=== PATIENT | female | born 1980 | race Caucasian/White ===

== ENCOUNTER 2017-07-15 00:19 | Inpatient (IN) | payer OTHER ==
[2017-07-15] MEDS ORDERED: Misoprostol 200 MCG Tab PO PRN (00:32)
[2017-07-15] MEDS ORDERED: Carboprost Tromethamine 250 MCG/1 ML Amp IM PRN (00:32)
[2017-07-15] MEDS ORDERED: Sodium Chloride 0.9% 10 ML Syringe FLUSH PRN (00:32)
[2017-07-15] MEDS ORDERED: Tranexamic Acid 1,000 MG in Sodium Chloride 0.9% 100 ML IV PRN (00:32)
[2017-07-15] MEDS ORDERED: Lidocaine 1% 50 ML MDV INJECT PRN (00:32)
[2017-07-15] MEDS ORDERED: Sodium Chloride 0.9% 2.5 ML Syringe FLUSH PRN (00:32)
[2017-07-15] MEDS ORDERED: Methylergonovine 0.2 MG/1 ML Amp IM PRN (00:32)
[2017-07-15] MEDS ORDERED: Water For Irrigation,Sterile 1,000 ML Container IRR PRN (00:32)
[2017-07-15] MEDS ORDERED: Terbutaline 1 MG/ML SDV SUBCUT PRN (00:34)
[2017-07-15] MEDS ORDERED: Misoprostol 25 MCG (1/4 of 100 MCG) Tab VAG PRN (00:34)
[2017-07-15] MEDS ORDERED: Misoprostol 25 MCG (1/4 of 100 MCG) Tab PO ONE (00:35)
[2017-07-15] MEDS ORDERED: Misoprostol 25 MCG (1/4 of 100 MCG) Tab PO PRN (00:36)
[2017-07-15] MEDS ORDERED: Oxytocin/0.9 % Sodium Chloride 30 UNIT/500 ML BAG IV SCH (00:45)
[2017-07-15] MEDS ORDERED: Misoprostol 25 MCG (1/4 of 100 MCG) Tab VAG SCH (00:45)
--- NOTE | 2017-07-15 08:17 | PCM.LDHP ---
L&D History of Present Illness - General Date of Service: 07/15/17 Admit Problem/Dx: Patient Status Order with Admit Dx/Problem 07/15/17 00:32 Patient Status [ADT] Routine Admission Diagnosis/Problem Admission Diagnosis/Problem 07/15/17 08:12 37 yo EDC 07/26/2017 38 3/7wks IOL due to GDMA1, AMA, and LGA. O+, RI, GBS neg Source of Information: Patient History Limitations: Reports: No Limitations - History of Present Illness Improves with: Reports: None Worsens with: Reports: None Associated Symptoms: Reports: N - Related Data Allergies/Adverse Reactions: Allergies Allergy/AdvReac Type Severity Reaction Status Date / Time ciprofloxacin [From Cipro] Allergy Rash Verified 12/03/13 15:31 ciprofloxacin HCl Allergy Rash Verified 12/03/13 15:31 [From Cipro] sulfamethoxazole Allergy Cannot Verified 12/03/13 15:31 [From Bactrim] Remember trimethoprim [From Bactrim] Allergy Cannot Verified 12/03/13 15:31 Remember Past Medical History HEENT History: Reports: Impaired Vision Gastrointestinal History: Reports: 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) Other Gastrointestinal History: 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: , 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) Other OB/BYN History: "heavy periods" Musculoskeletal History: Reports: Fracture Neurological History: Reports: Headaches, Chronic Psychiatric History: Reports: ADD, Anxiety, OCD Endocrine/Metabolic History: Reports: Diabetes, Gestational Dermatologic History: Reports: 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) Other Dermatologic History: sensitivity to sun - Infectious Disease History Infectious Disease History: Reports: Chicken Pox, Herpes - Past Surgical History HEENT Surgical History: Reports: Oral Surgery Social & Family History - Family History HEENT: Reports: Impaired Vision Cardiac: Reports: High Cholesterol, Hypertension, [place] GI: Reports: Cirrhosis, Jaundice OBGYN: Reports: Ectopic , Endometriosis, Fibroids, Neurological: Reports: Alzheimers Disease Psychiatric: Reports: Anxiety, Panic Attack Oncologic: Reports: 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) Other Oncologic Family History: stomach - Tobacco Use Smoking Status *Q: Former Smoker Years of Tobacco use: 1 Used Tobacco, but Quit: Yes Month Tobacco Last Used: 11/2016 Second Hand Smoke Exposure: No - Caffeine Use Caffeine Use: Reports: Coffee, Soda - Alcohol Use Days Per Week of Alcohol Use: 0 - Recreational Drug Use Recreational Drug Use: No H&P Review of Systems - Review of Systems: Review Of Systems: See Below General: Reports: No Symptoms HEENT: Reports: No Symptoms Pulmonary: Reports: No Symptoms Cardiovascular: Reports: No Symptoms Gastrointestinal: Reports: No Symptoms Genitourinary: Reports: No Symptoms Musculoskeletal: Reports: No Symptoms Skin: Reports: No Symptoms Psychiatric: Reports: No Symptoms Neurological: Reports: No Symptoms Hematologic/Lymphatic: Reports: No Symptoms Immunologic: Reports: No Symptoms L&D Exam - Exam Exam: See Below - Vital Signs Weight: 98.43 kg - Pires Score Pires Score Cervix Position: Posterior Pires Score Consistency: Soft Pires Score Effacement: 31-50% Pires Score Dilation: Closed Pires Score Infant's Station: -2 Pires Score Total: 4 - Exam General: Alert, Oriented, Cooperative, Mild Distress HEENT: Hearing Intact Lungs: Clear to Auscultation, Normal Respiratory Effort Cardiovascular: Regular Rate, Regular Rhythm, Normal S1, Normal S2 GI/Abdominal Exam: Soft, Non-Tender (gravid) Rectal Exam: Deferred Genitourinary: Normal external exam Back Exam: Full Range of Motion Extremities: Normal Range of Motion, Non-Tender, No Pedal Edema, Normal Capillary Refill Skin: Warm, Dry, Intact Neurological: Normal Speech, Normal Tone Psychiatric: Alert, Normal Affect, Normal Mood - Patient Data Lab Results Last 24 hrs: Laboratory Results - last 24 hr 07/15/17 07/15/17 Range/Units 00:45 00:45 WBC 13.37 H (4.0-11.0) K/uL RBC 4.10 L (4.30-5.90) M/uL Hgb 12.7 (12.0-16.0) g/dL Hct 37.7 (36.0-46.0) % MCV 92.0 (80.0-98.0) fL MCH 31.0 (27.0-32.0) pg MCHC 33.7 (31.0-37.0) g/dL RDW Std Deviation 47.6 (28.0-62.0) fl RDW Coeff of Roselia 15 (11.0-15.0) % Plt Count 185 (150-400) K/uL MPV 10.60 (7.40-12.00) fL Blood Type O POSITIVE Antibody Screen NEGATIVE Result Diagrams: 07/15/17 00:45 - Problem List (1) Supervision of normal IUP (intrauterine ) in primigravida SNOMED Code(s): 15728579, 161135693, 438543114 ICD Code: Z34.00 - ENCNTR FOR SUPRVSN OF NORMAL FIRST , UNSP TRIMESTER Status: Acute Priority: High Current Visit: Yes Qualifiers: Trimester: third trimester Qualified Code(s): Z34.03 - Encounter for supervision of normal first , third trimester (2) AMA (advanced maternal age) multigravida 35+ SNOMED Code(s): 559902455 ICD Code: O09.529 - SUPERVISION OF ELDERLY MULTIGRAVIDA, UNSPECIFIED TRIMESTER Status: Acute Priority: High Current Visit: Yes Qualifiers: Trimester: third trimester Qualified Code(s): O09.523 - Supervision of elderly multigravida, third trimester (3) GDM (gestational diabetes mellitus), class A1 SNOMED Code(s): 26264614 ICD Code: O24.410 - GESTATIONAL DIABETES MELLITUS IN , DIET CONTROLLED Status: Acute Priority: High Current Visit: Yes (4) LGA (large for gestational age) fetus affecting mother, antepartum SNOMED Code(s): 213641421, 290356425 ICD Code: O36.60X0 - MATERNAL CARE FOR EXCESS GROWTH, UNSP TRIMESTER, UNSP Status: Acute Priority: High Current Visit: Yes Problem List Initiated/Reviewed/Updated: Yes Orders Last 24hrs: Active Orders 24 hr Category Date Time Status Patient Status [ADT] Routine ADT 07/15/17 00:32 Active Bedrest Bathroom Privileges [RC] ASDIRECTED Care 07/15/17 00:34 Active Communication Order [RC] ASDIRECTED Care 07/15/17 00:34 Active Communication Order [RC] ASDIRECTED Care 07/15/17 00:34 Active Communication Order [RC] ASDIRECTED Care 07/15/17 00:34 Active Heart Tones [RC] CONTINUOUS Care 07/15/17 00:32 Active Non Stress Test [RC] PER UNIT ROUTINE Care 07/15/17 00:32 Active May Shower [RC] ASDIRECTED Care 07/15/17 00:32 Active Notify Provider [RC] PRN Care 07/15/17 00:32 Active Notify Provider [RC] PRN Care 07/15/17 00:34 Active Notify Provider [RC] PRN Care 07/15/17 00:34 Active Notify Provider [RC] STAT Care 07/15/17 00:34 Active Oxygen Therapy [RC] ASDIRECTED Care 07/15/17 00:34 Active Up ad Gali [RC] ASDIRECTED Care 07/15/17 00:32 Active Vaginal Exam [RC] PRN Care 07/15/17 00:32 Active Vaginal Exam [RC] PRN Care 07/15/17 00:34 Active Vital Signs [RC] PER UNIT ROUTINE Care 07/15/17 00:32 Active Vital Signs [RC] PER UNIT ROUTINE Care 07/15/17 00:34 Active Regular Diet [DIET] Diet 07/15/17 Breakfast Active Carboprost Tromethamine [Hemabate DS] Med 07/15/17 00:32 Active 250 mcg IM ASDIRECTED PRN Lactated Ringers [Ringers, Lactated] 1,000 ml Med 07/15/17 00:45 Active IV ASDIRECTED Lidocaine 1% [Xylocaine 1%] Med 07/15/17 00:32 Active 50 ml INJECT .ONCE PRN Methylergonovine [Methergine] Med 07/15/17 00:32 Active 0.2 mg IM ASDIRECTED PRN Misoprostol [Cytotec] Med 07/15/17 00:32 Active 200 mcg PO .ONCE PRN Misoprostol [Cytotec] Med 07/15/17 00:36 Active 25 mcg PO Q4H PRN Misoprostol [Cytotec] Med 07/15/17 00:45 Active 25 mcg VAG .ONCE Misoprostol [Cytotec] Med 07/15/17 00:34 Active 25 mcg VAG Q4H PRN Nalbuphine [Nubain] Med 07/15/17 00:32 Active 10 mg IVPUSH Q1H PRN Oxytocin/0.9 % Sodium Chloride [Oxytocin 30 Unit/500 ML Med 07/15/17 00:45 Active -NS] 30 unit in 500 ml IV TITRATE Sodium Chloride 0.9% [Saline Flush] Med 07/15/17 00:32 Active 10 ml FLUSH ASDIRECTED PRN Sodium Chloride 0.9% [Saline Flush] Med 07/15/17 00:32 Active 2.5 ml FLUSH ASDIRECTED PRN Terbutaline [Brethine] Med 07/15/17 00:34 Active 0.25 mg SUBCUT ASDIRECTED PRN Tranexamic Acid [Cyklokapron] 1,000 mg Med 07/15/17 00:32 Active Sodium Chloride 0.9% [Normal Saline] 100 ml IV ONETIME Water For Irrigation,Sterile [Sterile Water for Med 07/15/17 00:32 Active Irrigation] 1,000 ml IRR ASDIRECTED PRN Scalp Electrode [WOMSER] Per Unit Routine Oth 07/15/17 00:32 Ordered Medication Administration Instruction [OM.PC] Q3H Oth 07/15/17 00:45 Ordered Peripheral IV Insertion Adult [OM.PC] Routine Oth 07/15/17 00:32 Ordered Resuscitation Status Routine Resus Stat 07/15/17 00:32 Ordered Medication Orders Carboprost Tromethamine (Hemabate Ds) 250 mcg IM ASDIRECTED PRN PRN Reason: Post Hemorrhage Lactated Ringer's (Ringers, Lactated) 1,000 mls @ 150 mls/hr IV ASDIRECTED BUNNY Tranexamic Acid 1,000 mg/ (Sodium Chloride) 110 mls @ 600 mls/hr IV ONETIME PRN PRN Reason: Bleeding Oxytocin/Sodium Chloride (Oxytocin 30 Unit/500 Ml-Ns) 30 unit in 500 mls @ 2 mls/hr IV TITRATE BUNNY; 2 MUNITS/MIN PRN Reason: Protocol Lidocaine HCl (Xylocaine 1%) 50 ml INJECT .ONCE PRN PRN Reason: Laceration repair Methylergonovine Maleate (Methergine) 0.2 mg IM ASDIRECTED PRN PRN Reason: Post Hemorrhage Misoprostol (Cytotec) 200 mcg PO .ONCE PRN PRN Reason: Post Hemorrhage Misoprostol (Cytotec) 25 mcg VAG .ONCE BUNNY Last Admin: 07/15/17 01:14 Dose: 25 mcg Misoprostol (Cytotec) 25 mcg VAG Q4H PRN PRN Reason: Cervical Ripening Last Admin: 07/15/17 06:08 Dose: 25 mcg Misoprostol (Cytotec) 25 mcg PO Q4H PRN PRN Reason: Other Last Admin: 07/15/17 06:08 Dose: 25 mcg Nalbuphine HCl (Nubain) 10 mg IVPUSH Q1H PRN PRN Reason: Pain (severe 7-10) Sodium Chloride (Saline Flush) 10 ml FLUSH ASDIRECTED PRN PRN Reason: Keep Vein Open Sodium Chloride (Saline Flush) 2.5 ml FLUSH ASDIRECTED PRN PRN Reason: Keep Vein Open Sterile Water (Sterile Water For Irrigation) 1,000 ml IRR ASDIRECTED PRN PRN Reason: delivery Terbutaline Sulfate (Brethine) 0.25 mg SUBCUT ASDIRECTED PRN PRN Reason: Tacysystole Assessment/Plan Comment:: IOL A: 37 yo EDC 07/26/2017 38 3/7wks IOL due to GDMA1, AMA, and LGA. O+, RI, GBS neg P: Admit to L&D, IOL by cytotec to pitocin, anticipate . Dr Michaels updated on pt status.
[2017-07-15] MEDS: Nalbuphine 10 MG/1 ML Vial IVPUSH PRN ×2 (11:17→17:04)
[2017-07-15] MEDS: Lactated Ringers 1,000 ML IV SCH ×2 (11:26→18:03)
[2017-07-15] MEDS: NIFEdipine 30 MG Tab.ER PO SCH (15:06)
[2017-07-15 15:40] LABS: CHLORIDE,CL 107 mmol/L (98-110); SODIUM,NA 138 mmol/L (136-146)
[2017-07-15] MEDS ORDERED: Ropivacaine 0.2% 2 MG/ML 20 ML SDV ONE (17:13)
--- NOTE | 2017-07-15 17:40 | PCM.PREANE ---
Preanesthetic Assessment - Procedure Proposed Procedure: labor epidural - Anesthesia/Transfusion/Family Hx Anesthesia History: Prior Anesthesia Without Reaction Transfusion History: No Prior Transfusion(s) - Review of Systems Other: Reports: None - Physical Assessment Height: 5 ft 10 in Weight: 98.43 kg ASA Class: 2 Mental Status: Alert & Oriented x3 Airway Class: Mallampati = 2 Dentition: Reports: Normal Dentition Thyro-Mental Finger Breadths: 3 Mouth Opening Finger Breadths: 3 ROM/Head Extension: Full - Lab Values: Laboratory Last Values WBC 12.66 K/uL (4.0-11.0) H 07/15/17 14:55 RBC 4.36 M/uL (4.30-5.90) 07/15/17 14:55 Hgb 13.6 g/dL (12.0-16.0) 07/15/17 14:55 Hct 39.4 % (36.0-46.0) 07/15/17 14:55 MCV 90.4 fL (80.0-98.0) 07/15/17 14:55 MCH 31.2 pg (27.0-32.0) 07/15/17 14:55 MCHC 34.5 g/dL (31.0-37.0) 07/15/17 14:55 RDW Std Deviation 48.8 fl (28.0-62.0) 07/15/17 14:55 RDW Coeff of Roselia 15 % (11.0-15.0) 07/15/17 14:55 Plt Count 183 K/uL (150-400) 07/15/17 14:55 MPV 10.40 fL (7.40-12.00) 07/15/17 14:55 Add Manual Diff YES 07/15/17 14:55 Neutrophils % (Manual) 82 % (48.0-80.0) H 07/15/17 14:55 Lymphocytes % (Manual) 15 % (16.0-40.0) L 07/15/17 14:55 Monocytes % (Manual) 3 % (0.0-15.0) 07/15/17 14:55 Nucleated RBC % 0.0 /100WBC 07/15/17 14:55 Absolute Seg Neuts 10.4 (1.4-5.7) H 07/15/17 14:55 Lymphocytes # (Manual) 1.9 (0.6-2.4) 07/15/17 14:55 Monocytes # (Manual) 0.4 (0.0-0.8) 07/15/17 14:55 Nucleated RBCs # 0 K/uL 07/15/17 14:55 Sodium 138 mmol/L (136-146) 07/15/17 14:55 Potassium 3.9 mmol/L (3.5-5.1) 07/15/17 14:55 Chloride 107 mmol/L (98-110) 07/15/17 14:55 Carbon Dioxide 21 mmol/L (21-31) 07/15/17 14:55 BUN 10 mg/dL (6.0-23.0) 07/15/17 14:55 Creatinine 0.7 mg/dL (0.6-1.5) 07/15/17 14:55 Est Cr Clr Drug Dosing 116.68 mL/min 07/15/17 14:55 Estimated GFR (MDRD) > 60.0 ml/min 07/15/17 14:55 Glucose 88 mg/dL (60-110) 07/15/17 14:55 Calcium 9.7 mg/dL (8.8-10.8) 07/15/17 14:55 Total Bilirubin 0.8 mg/dL (0.1-1.5) 07/15/17 14:55 AST 17 IU/L (5-40) 07/15/17 14:55 ALT 13 IU/L (8-54) 07/15/17 14:55 Alkaline Phosphatase 241 (40-150) H 07/15/17 14:55 Total Protein 6.7 g/dL (6.0-8.0) 07/15/17 14:55 Albumin 3.4 g/dL (3.5-5.0) L 07/15/17 14:55 Globulin 3.3 g/dL (2.0-3.5) 07/15/17 14:55 Albumin/Globulin Ratio 1.0 (1.3-2.8) L 07/15/17 14:55 Urine Color YELLOW 07/15/17 14:16 Urine Appearance CLEAR 07/15/17 14:16 Urine pH 6.5 (5.0-8.0) 07/15/17 14:16 Ur Specific Andrews 1.015 (1.001-1.035) 07/15/17 14:16 Urine Protein NEGATIVE mg/dL (NEGATIVE) 07/15/17 14:16 Urine Glucose (UA) NEGATIVE mg/dL (NEGATIVE) 07/15/17 14:16 Urine Ketones TRACE mg/dL (NEGATIVE) H 07/15/17 14:16 Urine Occult Blood SMALL (NEGATIVE) H 07/15/17 14:16 Urine Nitrite NEGATIVE (NEGATIVE) 07/15/17 14:16 Urine Bilirubin NEGATIVE (NEGATIVE) 07/15/17 14:16 Urine Urobilinogen 0.2 EU/dL (<2.0) 07/15/17 14:16 Ur Leukocyte Esterase NEGATIVE (NEGATIVE) 07/15/17 14:16 Ur Random Creatinine 111.3 mg/dL 07/15/17 14:16 U Random Total Protein 11.4 mg/dL 07/15/17 14:16 Protein/Creatinin Ratio 0.1 07/15/17 14:16 Blood Type O POSITIVE 07/15/17 00:45 Antibody Screen NEGATIVE 07/15/17 00:45 - Allergies Allergies/Adverse Reactions: Allergies Allergy/AdvReac Type Severity Reaction Status Date / Time ciprofloxacin [From Cipro] Allergy Rash Verified 12/03/13 15:31 ciprofloxacin HCl Allergy Rash Verified 12/03/13 15:31 [From Cipro] sulfamethoxazole Allergy Cannot Verified 12/03/13 15:31 [From Bactrim] Remember trimethoprim [From Bactrim] Allergy Cannot Verified 12/03/13 15:31 Remember - Blood Blood Available: Yes Product(s) Available: PRBC - Acknowledgements Anesthesia Type Planned: Epidural Pt an Appropriate Candidate for the Planned Anesthesia: Yes Alternatives and Risks of Anesthesia Discussed w Pt/Guardian: Yes Pt/Guardian Understands and Agrees with Anesthesia Plan: Yes PreAnesthesia Questionnaire HEENT History: Reports: Impaired Vision Gastrointestinal History: Reports: 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) Other Gastrointestinal History: 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: , 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) Other OB/BYN History: "heavy periods" Musculoskeletal History: Reports: Fracture Neurological History: Reports: Headaches, Chronic Psychiatric History: Reports: ADD, Anxiety, OCD Endocrine/Metabolic History: Reports: Diabetes, Gestational Dermatologic History: Reports: 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) Other Dermatologic History: sensitivity to sun - Infectious Disease History Infectious Disease History: Reports: Chicken Pox, Herpes - Past Surgical History HEENT Surgical History: Reports: Oral Surgery - SUBSTANCE USE Smoking Status *Q: Former Smoker Tobacco Use Within Last Twelve Months: Cigarettes Second Hand Smoke Exposure: No Days Per Week of Alcohol Use: 0 Recreational Drug Use History: No - CURRENT (IN HOUSE) MEDS Current Meds: Current Medications Carboprost Tromethamine (Hemabate Ds) 250 mcg IM ASDIRECTED PRN PRN Reason: Post Hemorrhage Lactated Ringer's (Ringers, Lactated) 1,000 mls @ 150 mls/hr IV ASDIRECTED BUNNY Last Admin: 07/15/17 11:26 Dose: 150 mls/hr Tranexamic Acid 1,000 mg/ (Sodium Chloride) 110 mls @ 600 mls/hr IV ONETIME PRN PRN Reason: Bleeding Oxytocin/Sodium Chloride (Oxytocin 30 Unit/500 Ml-Ns) 30 unit in 500 mls @ 2 mls/hr IV TITRATE BUNNY; 2 MUNITS/MIN PRN Reason: Protocol Last Titration: 07/15/17 15:32 Dose: 10 munits/min, 10 mls/hr Lidocaine HCl (Xylocaine 1%) 50 ml INJECT .ONCE PRN PRN Reason: Laceration repair Methylergonovine Maleate (Methergine) 0.2 mg IM ASDIRECTED PRN PRN Reason: Post Hemorrhage Misoprostol (Cytotec) 200 mcg PO .ONCE PRN PRN Reason: Post Hemorrhage Misoprostol (Cytotec) 25 mcg VAG .ONCE BUNNY Last Admin: 07/15/17 01:14 Dose: 25 mcg Misoprostol (Cytotec) 25 mcg VAG Q4H PRN PRN Reason: Cervical Ripening Last Admin: 07/15/17 06:08 Dose: 25 mcg Misoprostol (Cytotec) 25 mcg PO Q4H PRN PRN Reason: Other Last Admin: 07/15/17 06:08 Dose: 25 mcg Nifedipine (Procardia Xl) 30 mg PO DAILY BUNNY Last Admin: 07/15/17 15:06 Dose: 30 mg Sodium Chloride (Saline Flush) 10 ml FLUSH ASDIRECTED PRN PRN Reason: Keep Vein Open Sodium Chloride (Saline Flush) 2.5 ml FLUSH ASDIRECTED PRN PRN Reason: Keep Vein Open Sterile Water (Sterile Water For Irrigation) 1,000 ml IRR ASDIRECTED PRN PRN Reason: delivery Terbutaline Sulfate (Brethine) 0.25 mg SUBCUT ASDIRECTED PRN PRN Reason: Tacysystole Discontinued Medications Fentanyl/Bupivacaine HCl (Jvrjrpzp-Bbdrm-Pd 2 Mcg/Ml-0.125%) Confirm Administered Dose 100 mls @ as directed EP .STK-MED ONE Stop: 07/15/17 17:14 Misoprostol (Cytotec) 25 mcg PO ONETIME ONE Stop: 07/15/17 00:36 Last Admin: 07/15/17 01:17 Dose: 25 mcg Nalbuphine HCl (Nubain) 10 mg IVPUSH Q1H PRN PRN Reason: Pain (severe 7-10) Last Admin: 07/15/17 17:04 Dose: 5 mg Ropivacaine (Naropin 0.2%) Confirm Administered Dose 20 ml .ROUTE .STK-MED ONE Stop: 07/15/17 17:14
[2017-07-16] MEDS ORDERED: Bupivacaine 0.5% 10 ML SDV ONE ×2 (06:01→17:16)
[2017-07-16] MEDS ORDERED: NIFEdipine 10 MG Cap ONE (06:32)
[2017-07-16] MEDS: NIFEdipine 10 MG Cap PO SCH ×3 (06:35→20:13)
--- NOTE | 2017-07-16 11:10 | PCM.PNLD ---
Labor Progress Note - VS & Meds Vital Signs: Last Vital Signs Temp Pulse Resp BP 162/92 H 07/16/17 06:35 Pulse Ox Active Medications: Current Medications Carboprost Tromethamine (Hemabate Ds) 250 mcg IM ASDIRECTED PRN PRN Reason: Post Hemorrhage Lactated Ringer's (Ringers, Lactated) 1,000 mls @ 150 mls/hr IV ASDIRECTED BUNNY Last Admin: 07/15/17 18:03 Dose: 999 mls/hr Tranexamic Acid 1,000 mg/ (Sodium Chloride) 110 mls @ 600 mls/hr IV ONETIME PRN PRN Reason: Bleeding Oxytocin/Sodium Chloride (Oxytocin 30 Unit/500 Ml-Ns) 30 unit in 500 mls @ 2 mls/hr IV TITRATE BUNNY; 2 MUNITS/MIN PRN Reason: Protocol Last Titration: 07/16/17 09:43 Dose: 20 munits/min, 20 mls/hr Lidocaine HCl (Xylocaine 1%) 50 ml INJECT .ONCE PRN PRN Reason: Laceration repair Methylergonovine Maleate (Methergine) 0.2 mg IM ASDIRECTED PRN PRN Reason: Post Hemorrhage Misoprostol (Cytotec) 200 mcg PO .ONCE PRN PRN Reason: Post Hemorrhage Misoprostol (Cytotec) 25 mcg VAG .ONCE [facility] Last Admin: 07/15/17 01:14 Dose: 25 mcg Misoprostol (Cytotec) 25 mcg VAG Q4H PRN PRN Reason: Cervical Ripening Last Admin: 07/15/17 06:08 Dose: 25 mcg Misoprostol (Cytotec) 25 mcg PO Q4H PRN PRN Reason: Other Last Admin: 07/15/17 06:08 Dose: 25 mcg Nifedipine (Procardia Xl) 30 mg PO DAILY [facility] Last Admin: 07/15/17 15:06 Dose: 30 mg Nifedipine (Procardia) 30 mg PO BID [facility] Last Admin: 07/16/17 06:35 Dose: 30 mg Sodium Chloride (Saline Flush) 10 ml FLUSH ASDIRECTED PRN PRN Reason: Keep Vein Open Sodium Chloride (Saline Flush) 2.5 ml FLUSH ASDIRECTED PRN PRN Reason: Keep Vein Open Sterile Water (Sterile Water For Irrigation) 1,000 ml IRR ASDIRECTED PRN PRN Reason: delivery Terbutaline Sulfate (Brethine) 0.25 mg SUBCUT ASDIRECTED PRN PRN Reason: Tacysystole Discontinued Medications Bupivacaine HCl (Sensorcaine-Mpf 0.5%) Confirm Administered Dose 10 ml .ROUTE .STK-MED ONE Stop: 07/16/17 06:02 Fentanyl/Bupivacaine HCl (Zayygzas-Uquvj-Zu 2 Mcg/Ml-0.125%) Confirm Administered Dose 100 mls @ as directed EP .STK-MED ONE Stop: 07/15/17 17:14 Fentanyl/Bupivacaine HCl (Utqezhal-Nlcos-Zw 2 Mcg/Ml-0.125%) Confirm Administered Dose 100 mls @ as directed EP .STK-MED ONE Stop: 07/15/17 23:01 Fentanyl/Bupivacaine HCl (Ykogfpcf-Dlsbv-Rc 2 Mcg/Ml-0.125%) Confirm Administered Dose 100 mls @ as directed EP .STK-MED ONE Stop: 07/16/17 06:02 Misoprostol (Cytotec) 25 mcg PO ONETIME ONE Stop: 07/15/17 00:36 Last Admin: 07/15/17 01:17 Dose: 25 mcg Nalbuphine HCl (Nubain) 10 mg IVPUSH Q1H PRN PRN Reason: Pain (severe 7-10) Last Admin: 07/15/17 17:04 Dose: 5 mg Nifedipine (Procardia) Confirm Administered Dose 30 mg .ROUTE .STK-MED ONE Stop: 07/16/17 06:33 Ropivacaine (Naropin 0.2%) Confirm Administered Dose 20 ml .ROUTE .STK-MED ONE Stop: 07/15/17 17:14 - Uterine Contractions Contraction Intensity: Moderate Uterine Resting Tone: Soft - Monitoring Monitor Mode: External Ultrasound Heart Rate (FHR) Variability: Moderate (6-25 bmp) Strip Review: Category I - Vaginal Exam Dilation (cm): 5 Effacement (Percent): 90 Station: -3 Cervical Position: Midposition Vaginal Exam Comment: No change - Labor Progress (Free Text) Labor Progress: Will stop the Pitocin for 1 hour and then restart. If there is no segneficant diletation at 5 pm will do C/section.
[2017-07-16] MEDS ORDERED: Morphine PF 1 MG/ML Amp ONE (16:58)
[2017-07-16] MEDS ORDERED: Oxytocin/0.9 % Sodium Chloride 30 UNIT/500 ML BAG ONE (17:15)
[2017-07-16] MEDS ORDERED: ceFAZolin/Dextrose,Iso-Osmotic 2 GM/50 ML Duplex Bag IV ONE (17:15)
[2017-07-16] MEDS ORDERED: fentaNYL 100 MCG/2 ML SDV ONE ×2 (17:34→18:00)
[2017-07-16] MEDS ORDERED: Octyl 2-Cyanoacrylate 1 Tube ONE (18:03)
[2017-07-16] MEDS ORDERED: Ondansetron 4 MG/2 ML SDV IV PRN (18:12)
[2017-07-16] MEDS ORDERED: Acetaminophen/oxyCODONE 325-5 MG Tab PO PRN ×2 (18:12→18:33)
[2017-07-16] MEDS ORDERED: Lanolin 100% Cream 7 GM Tube TOP PRN (18:12)
[2017-07-16] MEDS ORDERED: Bisacodyl 10 MG Supp RECTAL PRN (18:12)
[2017-07-16] MEDS ORDERED: diphenhydrAMINE 50 MG/ML SDV IVPUSH PRN ×2 (18:12→18:32)
--- NOTE | 2017-07-16 18:12 | PCM.OPNOTE ---
- General Post-Op/Procedure Note Date of Surgery/Procedure: 07/16/17 Operative Procedure(s): Primary C/Section Pre Op Diagnosis: IUP 30+ wks, Faild induction due to CPD. Post-Op Diagnosis: Same Anesthesia Technique: Epidural Primary Surgeon: Mik Michaels EBL in mLs: 850 Complications: None Condition: Good
[2017-07-16] MEDS ORDERED: Lactated Ringers 1,000 ML IV SCH (18:15)
[2017-07-16] MEDS ORDERED: Nalbuphine 10 MG/1 ML Vial IVPUSH PRN (18:32)
[2017-07-16] MEDS ORDERED: Naloxone 0.4 MG/ML Syringe IVPUSH PRN (18:32)
[2017-07-16] MEDS ORDERED: fentaNYL 100 MCG/2 ML SDV IVPUSH PRN (18:33)
--- NOTE | 2017-07-16 18:34 | PCM.POSTAN ---
POST ANESTHESIA ASSESSMENT - MENTAL STATUS Mental Status: Alert, Oriented - RESPIRATORY Respiratory Status: Respiratory Rate WNL, Airway Patent, O2 Saturation Stable - CARDIOVASCULAR CV Status: Pulse Rate WNL, Blood Pressure Stable - GASTROINTESTINAL GI Status: No Symptoms - PAIN Pain Score: 0 - POST OP HYDRATION Hydration Status: Adequate & Stable
[2017-07-16] MEDS: Ketorolac 30 MG/ML SDV IVPUSH SCH (18:45)
[2017-07-16] MEDS: Docusate Sodium 100 MG Cap PO SCH (20:14)
--- NOTE | 2017-07-16 22:54 | OR ---
SURGEON: Mik Michaels MD DATE OF PROCEDURE: PREOPERATIVE DIAGNOSES: Intrauterine at 39 weeks plus failed induction possibly and failure to descend possibly due to cephalopelvic disproportion. OPERATION PERFORMED: Primary low transverse section. PRIMARY SURGEON: Mik Michaels M.D. PUBLIC WORKS SUPERVISOR: OR tech. ANESTHESIA: Epidural, Lindsay Thao and Dr. Mauro. FINANCIAL ASSISTANT: Dr. Aldair Torres. ESTIMATED BLOOD LOSS: 850 mL. COMPLICATIONS: None. INDICATION FOR SURGERY: This patient is 37 years old. She is primigravida. 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 She was admitted for elective induction because of advanced maternal age and she was initially responded to the Cytotec and Pitocin. She had spontaneous rupture of the membrane at 3 cm at 4 p.m. of July 15, which is the day of her admission. The patient continued to progress. She reached 5 cm. She had epidural anesthesia for labor analgesia. In spite of adequate contraction and adequate time with Pitocin, the patient did not progress beyond 5 cm and there was a failure to descend. It is theorized probably due to cephalopelvic disproportion at this time and then after discussion with the patient and her , the decision was made to do primary low transverse section. PROCEDURE IN DETAIL: The patient was brought to the OR, properly identified, and after adequate level of epidural anesthesia with a Duffy catheter in the bladder, time-out was taken and the patient was identified. The patient was prepped and draped in sterile fashion as usual. A low transverse Pfannenstiel skin incision was done. Mine fascia and rectus fascia were opened in direction of the incision. The 2 recti muscles were and peritoneal cavity was entered. The bladder flap was raised in the usual manner pushing the bladder away from the lower uterine segment. Low transverse uterine incision was done extended manually with the hand. The fetus was in the vertex position and it was completely out of the pelvis. The fetus was delivered without any problems, cried immediately, was handed to Dr. Torres, who was present at the time of the section for resuscitation. scores reported to be 8 and 9 and the weight was not available. The placenta delivered spontaneous, complete, and intact without any problem; and repair of the lower uterine segment was done with 2-0 Vicryl continuous interlocking in 2 layers using 2-0 Vicryl. The reperitonealization of the lower uterine segment was done with 3-0 Vicryl and then the peritoneal cavity evacuated completely from all blood and blood clot and closed with 3-0 Vicryl continuous. The rectus fascia was closed with #1 PDS double strand continuous and the Mine fascia with 3-0 Vicryl continuous. The skin closed with skin clips, INSORB staple, and Dermabond. Instrument and sponge counts were correct. The patient tolerated the procedure well, went to recovery room in stable general condition. MCKAY / TERESO /[id number]
[2017-07-17] MEDS: Ketorolac 30 MG/ML SDV IVPUSH SCH ×4 (00:12→17:59)
[2017-07-17] MEDS: NIFEdipine 30 MG Tab.ER PO SCH ×2 (07:22→08:39)
[2017-07-17] MEDS: NIFEdipine 10 MG Cap PO SCH ×2 (10:37→21:06)
[2017-07-17] MEDS: Docusate Sodium 100 MG Cap PO SCH ×2 (10:41→21:09)
--- NOTE | 2017-07-17 11:29 | PCM.PNPP ---
- General Info Date of Service: 07/17/17 Admission Dx/Problem (Free Text): Patient Status Order with Admit Dx/Problem 07/15/17 00:32 Patient Status [ADT] Routine Admission Diagnosis/Problem Admission Diagnosis/Problem 07/15/17 08:12 37 yo EDC 07/26/2017 38 3/7wks IOL due to GDMA1, AMA, and LGA. O+, RI, GBS neg Functional Status: Reports: Pain Controlled, Tolerating Diet, Ambulating - Review of Systems General: Reports: No Symptoms HEENT: Reports: No Symptoms Pulmonary: Reports: No Symptoms Cardiovascular: Reports: No Symptoms Gastrointestinal: Reports: No Symptoms Genitourinary: Reports: No Symptoms Musculoskeletal: Reports: No Symptoms Skin: Reports: No Symptoms Neurological: Reports: No Symptoms Psychiatric: Reports: No Symptoms - General Info Date of Service: 07/17/17 - Patient Data Vital Signs - Most Recent: Last Vital Signs Temp 36.7 C 07/17/17 08:00 Pulse 101 H 07/17/17 09:00 Resp 15 07/17/17 09:00 BP 124/73 07/17/17 08:39 Pulse Ox 98 07/17/17 09:00 Weight - Most Recent: 98.43 kg I&O - Last 24 Hours: Intake & Output 07/16/17 07/17/17 07/17/17 22:59 06:59 14:59 Intake Total 1999 2250 Output Total 550 3950 Balance 1450 -1700 Lab Results - Last 24 Hours: Laboratory Results - last 24 hr 07/17/17 Range/Units 06:05 Hgb 11.9 L (12.0-16.0) g/dL Hct 35.1 L (36.0-46.0) % Med Orders - Current: Current Medications Bisacodyl (Dulcolax) 10 mg RECTAL .ONCE PRN PRN Reason: Constipation Carboprost Tromethamine (Hemabate Ds) 250 mcg IM ASDIRECTED PRN PRN Reason: Post Hemorrhage Diphenhydramine HCl (Benadryl) 25 mg IVPUSH Q6H PRN PRN Reason: Itching or Nausea Diphenhydramine HCl (Benadryl) 25 mg IVPUSH Q4H PRN PRN Reason: Itching Stop: 07/17/17 18:32 Last Admin: 07/16/17 23:00 Dose: 25 mg Docusate Sodium (Colace) 100 mg PO BID [facility] Last Admin: 07/17/17 10:41 Dose: 100 mg Emollient Ointment (Lansinoh Hpa) 0 gm TOP ASDIRECTED PRN PRN Reason: Sore Nipples Fentanyl (Sublimaze) 25 - 50 mcg IVPUSH Q30M PRN PRN Reason: Pain Lactated Ringer's (Ringers, Lactated) 1,000 mls @ 150 mls/hr IV ASDIRECTED [facility] Last Admin: 07/15/17 18:03 Dose: 999 mls/hr Tranexamic Acid 1,000 mg/ (Sodium Chloride) 110 mls @ 600 mls/hr IV ONETIME PRN PRN Reason: Bleeding Oxytocin/Sodium Chloride (Oxytocin 30 Unit/500 Ml-Ns) 30 unit in 500 mls @ 2 mls/hr IV TITRATE BUNNY; 2 MUNITS/MIN PRN Reason: Protocol Last Titration: 07/16/17 15:45 Dose: 20 munits/min, 20 mls/hr Lactated Ringer's (Ringers, Lactated) 1,000 mls @ 125 mls/hr IV ASDIRECTED [facility] Last Admin: 07/16/17 20:17 Dose: 125 mls/hr Ibuprofen (Motrin) 800 mg PO Q8H PRN PRN Reason: mild pain or fever Ketorolac Tromethamine (Toradol) 30 mg IVPUSH Q6H [facility] Stop: 07/17/17 18:01 Last Admin: 07/17/17 06:07 Dose: 30 mg Lidocaine HCl (Xylocaine 1%) 50 ml INJECT .ONCE PRN PRN Reason: Laceration repair Methylergonovine Maleate (Methergine) 0.2 mg IM ASDIRECTED PRN PRN Reason: Post Hemorrhage Last Admin: 07/16/17 18:49 Dose: 0.2 mg Misoprostol (Cytotec) 200 mcg PO .ONCE PRN PRN Reason: Post Hemorrhage Misoprostol (Cytotec) 25 mcg VAG .ONCE [facility] Last Admin: 07/15/17 01:14 Dose: 25 mcg Misoprostol (Cytotec) 25 mcg VAG Q4H PRN PRN Reason: Cervical Ripening Last Admin: 02/23/18 06:08 Dose: 25 mcg Misoprostol (Cytotec) 25 mcg PO Q4H PRN PRN Reason: Other Last Admin: 07/15/17 06:08 Dose: 25 mcg Nalbuphine HCl (Nubain) 5 mg IVPUSH Q3H PRN PRN Reason: Pruritis Stop: 07/17/17 18:32 Naloxone HCl (Narcan) 0.1 mg IVPUSH ONETIME PRN PRN Reason: Other Stop: 07/17/17 18:32 Nifedipine (Procardia Xl) 30 mg PO DAILY [facility] Last Admin: 07/17/17 08:39 Dose: 30 mg Nifedipine (Procardia) 30 mg PO BID [facility] Last Admin: 07/17/17 10:37 Dose: Not Given Ondansetron HCl (Zofran) 4 mg IV Q4H PRN PRN Reason: Nausea/Vomiting Oxycodone/Acetaminophen (Percocet 325-5 Mg) 1 tab PO Q4H PRN PRN Reason: Pain (moderate 4-6) Oxycodone/Acetaminophen (Percocet 325-5 Mg) 2 tab PO Q4H PRN PRN Reason: Pain (moderate 4-6) Oxycodone/Acetaminophen (Percocet 325-5 Mg) 1 - 2 tab PO Q6H PRN PRN Reason: Pain Stop: 07/18/17 14:00 Sodium Chloride (Saline Flush) 10 ml FLUSH ASDIRECTED PRN PRN Reason: Keep Vein Open Sodium Chloride (Saline Flush) 2.5 ml FLUSH ASDIRECTED PRN PRN Reason: Keep Vein Open Sterile Water (Sterile Water For Irrigation) 1,000 ml IRR ASDIRECTED PRN PRN Reason: delivery Terbutaline Sulfate (Brethine) 0.25 mg SUBCUT ASDIRECTED PRN PRN Reason: Tacysystole Discontinued Medications Bupivacaine HCl (Sensorcaine-Mpf 0.5%) Confirm Administered Dose 10 ml .ROUTE .STK-MED ONE Stop: 07/16/17 06:02 Last Admin: 07/17/17 07:21 Dose: Not Given Bupivacaine HCl (Sensorcaine-Mpf 0.5%) Confirm Administered Dose 20 ml .ROUTE .STK-MED ONE Stop: 07/16/17 17:17 Last Admin: 07/17/17 07:22 Dose: Not Given Cefazolin Sodium/Dextrose (Ancef) Confirm Administered Dose 2 gm IV .STK-MED ONE Stop: 07/16/17 17:16 Last Admin: 07/17/17 07:22 Dose: Not Given Fentanyl (Sublimaze) Confirm Administered Dose 100 mcg .ROUTE .STK-MED ONE Stop: 07/16/17 17:35 Fentanyl (Sublimaze) Confirm Administered Dose 100 mcg .ROUTE .STK-MED ONE Stop: 07/16/17 18:01 Fentanyl/Bupivacaine HCl (Nfkqefss-Irpgh-Ne 2 Mcg/Ml-0.125%) Confirm Administered Dose 100 mls @ as directed EP .STK-MED ONE Stop: 07/15/17 17:14 Fentanyl/Bupivacaine HCl (Gthxlxnc-Jjdvn-Yt 2 Mcg/Ml-0.125%) Confirm Administered Dose 100 mls @ as directed EP .STK-MED ONE Stop: 07/15/17 23:01 Fentanyl/Bupivacaine HCl (Pjhlwqwc-Skbcf-Hz 2 Mcg/Ml-0.125%) Confirm Administered Dose 100 mls @ as directed EP .STK-MED ONE Stop: 07/16/17 06:02 Last Admin: 07/17/17 07:21 Dose: Not Given Fentanyl/Bupivacaine HCl (Fpsppxri-Tqzwf-Zb 2 Mcg/Ml-0.125%) Confirm Administered Dose 100 mls @ as directed EP .STK-MED ONE Stop: 07/16/17 11:41 Last Admin: 07/17/17 07:22 Dose: Not Given Oxytocin/Sodium Chloride (Oxytocin 30 Unit/500 Ml-Ns) Confirm Administered Dose 30 unit in 500 mls @ as directed .ROUTE .STK-MED ONE Stop: 07/16/17 17:16 Last Admin: 07/17/17 07:22 Dose: Not Given Misoprostol (Cytotec) 25 mcg PO ONETIME ONE Stop: 07/15/17 00:36 Last Admin: 07/15/17 01:17 Dose: 25 mcg Morphine Sulfate (Duramorph Pf) Confirm Administered Dose 1 mg .ROUTE .STK-MED ONE Stop: 07/16/17 16:59 Nalbuphine HCl (Nubain) 10 mg IVPUSH Q1H PRN PRN Reason: Pain (severe 7-10) Last Admin: 07/15/17 17:04 Dose: 5 mg Nifedipine (Procardia) Confirm Administered Dose 30 mg .ROUTE .STK-MED ONE Stop: 07/16/17 06:33 Last Admin: 07/17/17 07:21 Dose: Not Given Octyl Cyanoacrylate (Dermabond Advance) Confirm Administered Dose 1 applic .ROUTE .STK-MED ONE Stop: 07/16/17 18:04 Ropivacaine (Naropin 0.2%) Confirm Administered Dose 20 ml .ROUTE .STK-MED ONE Stop: 07/15/17 17:14 - Interaction Infant Disposition, : [place] in Room with Family Infant Interaction: Holding Infant Feeding: Breastfed Infant; Nursed Well Support Person: Significant Other - Recovery Exam Fundal Tone: Firm Fundal Level: At Umbilicus Fundal Placement: Midline Lochia Amount: Small Lochia Color: Rubra/Red Perineum Description: Intact, Minimal Bruising/Swelling Episiotomy/Laceration: None Bladder Status: Indwelling Catheter in Place Urinary Elimination: Indwelling Catheter - Exam General: Alert, Oriented, Cooperative, No Acute Distress HEENT: Pupils Equal Lungs: Normal Respiratory Effort GI/Abdominal Exam: Soft, Non-Tender, No Organomegaly, No Distention, No Abnormal Bruit, No Mass, Pelvis Stable Extremities: Normal Range of Motion, Non-Tender, No Pedal Edema, Normal Capillary Refill Skin: Warm, Dry, Intact Wound/Incisions: Healing Well, No Drainage Neurological: No New Focal Deficit, Normal Speech, Normal Tone Psy/Mental Status: Alert, Normal Affect, Normal Mood - Problem List & Annotations (1) Supervision of normal IUP (intrauterine ) in primigravida SNOMED Code(s): 87743916, 015767673, 013324901 Code(s): Z34.00 - ENCNTR FOR SUPRVSN OF NORMAL FIRST , UNSP TRIMESTER Status: Acute Priority: High Current Visit: Yes Qualifiers: Trimester: third trimester Qualified Code(s): Z34.03 - Encounter for supervision of normal first , third trimester (2) AMA (advanced maternal age) multigravida 35+ SNOMED Code(s): 483341445 Code(s): O09.529 - SUPERVISION OF ELDERLY MULTIGRAVIDA, UNSPECIFIED TRIMESTER Status: Acute Priority: High Current Visit: Yes Qualifiers: Trimester: third trimester Qualified Code(s): O09.523 - Supervision of elderly multigravida, third trimester (3) GDM (gestational diabetes mellitus), class A1 SNOMED Code(s): 03485647 Code(s): O24.410 - GESTATIONAL DIABETES MELLITUS IN , DIET CONTROLLED Status: Acute Priority: High Current Visit: Yes (4) LGA (large for gestational age) fetus affecting mother, antepartum SNOMED Code(s): 928845668, 364785431 Code(s): O36.60X0 - MATERNAL CARE FOR EXCESS GROWTH, UNSP TRIMESTER, UNSP Status: Acute Priority: High Current Visit: Yes (5) delivery delivered SNOMED Code(s): 612338016 Code(s): O82 - ENCOUNTER FOR DELIVERY WITHOUT INDICATION Status: Acute Priority: High Current Visit: Yes - Problem List Review Problem List Initiated/Reviewed/Updated: Yes - Plan Plan:: IOL A: 37 yo EDC 07/26/2017 38 3/7wks IOL due to GDMA1, AMA, and LGA. O+, RI, GBS neg P: Admit to L&D, IOL by cytotec to pitocin, anticipate . Dr Michaels updated on pt status. Post op A: VSS, BP 120/70's with medication, AF, Lochia small, up to shower, Incision dry and intact, stable condition P; continue pp plan of care, may discharge home tomorrow if stable.
[2017-07-17] MEDS: Acetaminophen/oxyCODONE 325-5 MG Tab PO PRN (22:32)
[2017-07-18] MEDS: Ibuprofen 800 MG Tab PO PRN ×2 (00:32→09:40)
[2017-07-18] MEDS: Acetaminophen/oxyCODONE 325-5 MG Tab PO PRN (04:37)
--- NOTE | 2017-07-18 07:53 | PCM48HPAN ---
Post Anesthesia Note - EVALUATION WITHIN 48HRS OF ANESTHETIC Vital Signs in Normal Range: Yes Patient Participated in Evaluation: Yes Respiratory Function Stable: Yes Airway Patent: Yes Cardiovascular Function Stable: Yes Hydration Status Stable: Yes Pain Control Satisfactory: Yes Nausea and Vomiting Control Satisfactory: Yes Mental Status Recovered: Yes Resp Rate: 19 Blood Pressure: 123/96 - COMMENTS/OBSERVATIONS Free Text/Narrative:: Pt sitting up on the side of the bed and denies any complaints. No apparent anesthesia complications.
--- NOTE | 2017-07-18 07:57 | PCM.DCSUM1 ---
Discharge Summary - Hospital Course Free Text/Narrative:: Discharge home with baby. Follow up in 10 days for incision check and BP check and then in 6 weeks for post . - Discharge Data Discharge Date: 07/18/17 Discharge Disposition: Home, Self-Care 01 Condition: Good - Discharge Diagnosis/Problem(s) (1) Supervision of normal IUP (intrauterine ) in primigravida SNOMED Code(s): 22779244, 159853078, 521413339 ICD Code: Z34.00 - ENCNTR FOR SUPRVSN OF NORMAL FIRST , UNSP TRIMESTER Status: Acute Priority: High Current Visit: Yes Qualifiers: Trimester: third trimester Qualified Code(s): Z34.03 - Encounter for supervision of normal first , third trimester (2) AMA (advanced maternal age) multigravida 35+ SNOMED Code(s): 306554681 ICD Code: O09.529 - SUPERVISION OF ELDERLY MULTIGRAVIDA, UNSPECIFIED TRIMESTER Status: Acute Priority: High Current Visit: Yes Qualifiers: Trimester: third trimester Qualified Code(s): O09.523 - Supervision of elderly multigravida, third trimester (3) GDM (gestational diabetes mellitus), class A1 SNOMED Code(s): 89956262 ICD Code: O24.410 - GESTATIONAL DIABETES MELLITUS IN , DIET CONTROLLED Status: Acute Priority: High Current Visit: Yes (4) LGA (large for gestational age) fetus affecting mother, antepartum SNOMED Code(s): 794315587, 016011438 ICD Code: O36.60X0 - MATERNAL CARE FOR EXCESS GROWTH, UNSP TRIMESTER, UNSP Status: Acute Priority: High Current Visit: Yes (5) delivery delivered SNOMED Code(s): 051725901 ICD Code: O82 - ENCOUNTER FOR DELIVERY WITHOUT INDICATION Status: Acute Priority: High Current Visit: Yes - Patient Summary/Data Operative Procedure(s) Performed: Primary C/Section - Patient Instructions Diet: Usual Diet as Tolerated Activity: As Tolerated, No Strenuous Activities, Rest and Relax Today Driving: May Drive Today Showering/Bathing: May Shower Wound/Incision Care: Keep Operative Site/Wound Site Clean and Dry Notify Provider of: Fever, Increased Pain, Swelling and Redness, Drainage, Nausea and/or Vomiting - Discharge Plan - General Info Date of Service: 07/18/17 Admission Dx/Problem (Free Text: Patient Status Order with Admit Dx/Problem 07/15/17 00:32 Patient Status [ADT] Routine Admission Diagnosis/Problem Admission Diagnosis/Problem 07/15/17 08:12 37 yo EDC 07/26/2017 38 3/7wks IOL due to GDMA1, AMA, and LGA. O+, RI, GBS neg Functional Status: Reports: Pain Controlled, Tolerating Diet, Ambulating, Urinating - Review of Systems General: Reports: No Symptoms HEENT: Reports: No Symptoms Pulmonary: Reports: No Symptoms Cardiovascular: Reports: No Symptoms Gastrointestinal: Reports: No Symptoms Genitourinary: Reports: No Symptoms Musculoskeletal: Reports: No Symptoms Skin: Reports: No Symptoms Neurological: Reports: No Symptoms Psychiatric: Reports: No Symptoms - Patient Data Vitals - Most Recent: Last Vital Signs Temp 36.5 C 07/18/17 05:00 Pulse 74 07/18/17 05:00 Resp 19 07/18/17 05:00 BP 116/78 07/18/17 05:00 Pulse Ox 96 07/18/17 05:00 Weight - Most Recent: 98.43 kg Med Orders - Current: Current Medications Bisacodyl (Dulcolax) 10 mg RECTAL .ONCE PRN PRN Reason: Constipation Carboprost Tromethamine (Hemabate Ds) 250 mcg IM ASDIRECTED PRN PRN Reason: Post Hemorrhage Diphenhydramine HCl (Benadryl) 25 mg IVPUSH Q6H PRN PRN Reason: Itching or Nausea Docusate Sodium (Colace) 100 mg PO BID [facility] Last Admin: 07/17/17 21:09 Dose: 100 mg Emollient Ointment (Lansinoh Hpa) 0 gm TOP ASDIRECTED PRN PRN Reason: Sore Nipples Fentanyl (Sublimaze) 25 - 50 mcg IVPUSH Q30M PRN PRN Reason: Pain Lactated Ringer's (Ringers, Lactated) 1,000 mls @ 150 mls/hr IV ASDIRECTED [facility] Last Admin: 07/15/17 18:03 Dose: 999 mls/hr Tranexamic Acid 1,000 mg/ (Sodium Chloride) 110 mls @ 600 mls/hr IV ONETIME PRN PRN Reason: Bleeding Oxytocin/Sodium Chloride (Oxytocin 30 Unit/500 Ml-Ns) 30 unit in 500 mls @ 2 mls/hr IV TITRATE BUNNY; 2 MUNITS/MIN PRN Reason: Protocol Last Titration: 07/16/17 15:45 Dose: 20 munits/min, 20 mls/hr Lactated Ringer's (Ringers, Lactated) 1,000 mls @ 125 mls/hr IV ASDIRECTED [facility] Last Admin: 07/16/17 20:17 Dose: 125 mls/hr Ibuprofen (Motrin) 800 mg PO Q8H PRN PRN Reason: mild pain or fever Last Admin: 07/18/17 00:32 Dose: 800 mg Lidocaine HCl (Xylocaine 1%) 50 ml INJECT .ONCE PRN PRN Reason: Laceration repair Methylergonovine Maleate (Methergine) 0.2 mg IM ASDIRECTED PRN PRN Reason: Post Hemorrhage Last Admin: 07/16/17 18:49 Dose: 0.2 mg Misoprostol (Cytotec) 200 mcg PO .ONCE PRN PRN Reason: Post Hemorrhage Misoprostol (Cytotec) 25 mcg VAG .ONCE [facility] Last Admin: 07/15/17 01:14 Dose: 25 mcg Misoprostol (Cytotec) 25 mcg VAG Q4H PRN PRN Reason: Cervical Ripening Last Admin: 07/15/17 06:08 Dose: 25 mcg Misoprostol (Cytotec) 25 mcg PO Q4H PRN PRN Reason: Other Last Admin: 07/15/17 06:08 Dose: 25 mcg Nifedipine (Procardia Xl) 30 mg PO DAILY [facility] Last Admin: 07/17/17 08:39 Dose: 30 mg Nifedipine (Procardia) 30 mg PO BID [facility] Last Admin: 07/17/17 21:06 Dose: 30 mg Ondansetron HCl (Zofran) 4 mg IV Q4H PRN PRN Reason: Nausea/Vomiting Oxycodone/Acetaminophen (Percocet 325-5 Mg) 1 tab PO Q4H PRN PRN Reason: Pain (moderate 4-6) Last Admin: 07/18/17 04:37 Dose: 1 tab Oxycodone/Acetaminophen (Percocet 325-5 Mg) 2 tab PO Q4H PRN PRN Reason: Pain (moderate 4-6) Oxycodone/Acetaminophen (Percocet 325-5 Mg) 1 - 2 tab PO Q6H PRN PRN Reason: Pain Stop: 07/18/17 14:00 Sodium Chloride (Saline Flush) 10 ml FLUSH ASDIRECTED PRN PRN Reason: Keep Vein Open Sodium Chloride (Saline Flush) 2.5 ml FLUSH ASDIRECTED PRN PRN Reason: Keep Vein Open Sterile Water (Sterile Water For Irrigation) 1,000 ml IRR ASDIRECTED PRN PRN Reason: delivery Terbutaline Sulfate (Brethine) 0.25 mg SUBCUT ASDIRECTED PRN PRN Reason: Tacysystole Discontinued Medications Bupivacaine HCl (Sensorcaine-Mpf 0.5%) Confirm Administered Dose 10 ml .ROUTE .STK-MED ONE Stop: 07/16/17 06:02 Last Admin: 07/17/17 07:21 Dose: Not Given Bupivacaine HCl (Sensorcaine-Mpf 0.5%) Confirm Administered Dose 20 ml .ROUTE .STK-MED ONE Stop: 07/16/17 17:17 Last Admin: 07/17/17 07:22 Dose: Not Given Cefazolin Sodium/Dextrose (Ancef) Confirm Administered Dose 2 gm IV .STK-MED ONE Stop: 07/16/17 17:16 Last Admin: 07/17/17 07:22 Dose: Not Given Diphenhydramine HCl (Benadryl) 25 mg IVPUSH Q4H PRN PRN Reason: Itching Stop: 07/17/17 18:32 Last Admin: 07/16/17 23:00 Dose: 25 mg Fentanyl (Sublimaze) Confirm Administered Dose 100 mcg .ROUTE .STK-MED ONE Stop: 07/16/17 17:35 Fentanyl (Sublimaze) Confirm Administered Dose 100 mcg .ROUTE .STK-MED ONE Stop: 07/16/17 18:01 Fentanyl/Bupivacaine HCl (Pemahakv-Qgwtd-Si 2 Mcg/Ml-0.125%) Confirm Administered Dose 100 mls @ as directed EP .STK-MED ONE Stop: 07/15/17 17:14 Fentanyl/Bupivacaine HCl (Vhoggiup-Qsott-Pn 2 Mcg/Ml-0.125%) Confirm Administered Dose 100 mls @ as directed EP .STK-MED ONE Stop: 07/15/17 23:01 Fentanyl/Bupivacaine HCl (Kbmobhma-Comnf-Oa 2 Mcg/Ml-0.125%) Confirm Administered Dose 100 mls @ as directed EP .STK-MED ONE Stop: 07/16/17 06:02 Last Admin: 07/17/17 07:21 Dose: Not Given Fentanyl/Bupivacaine HCl (Hrwkumjs-Ljgst-Zf 2 Mcg/Ml-0.125%) Confirm Administered Dose 100 mls @ as directed EP .STK-MED ONE Stop: 07/16/17 11:41 Last Admin: 07/17/17 07:22 Dose: Not Given Oxytocin/Sodium Chloride (Oxytocin 30 Unit/500 Ml-Ns) Confirm Administered Dose 30 unit in 500 mls @ as directed .ROUTE .STK-MED ONE Stop: 07/16/17 17:16 Last Admin: 07/17/17 07:22 Dose: Not Given Ketorolac Tromethamine (Toradol) 30 mg IVPUSH Q6H [facility] Stop: 07/17/17 18:01 Last Admin: 07/17/17 17:59 Dose: 30 mg Misoprostol (Cytotec) 25 mcg PO ONETIME ONE Stop: 07/15/17 00:36 Last Admin: 07/15/17 01:17 Dose: 25 mcg Morphine Sulfate (Duramorph Pf) Confirm Administered Dose 1 mg .ROUTE .STK-MED ONE Stop: 07/16/17 16:59 Nalbuphine HCl (Nubain) 10 mg IVPUSH Q1H PRN PRN Reason: Pain (severe 7-10) Last Admin: 07/15/17 17:04 Dose: 5 mg Nalbuphine HCl (Nubain) 5 mg IVPUSH Q3H PRN PRN Reason: Pruritis Stop: 07/17/17 18:32 Naloxone HCl (Narcan) 0.1 mg IVPUSH ONETIME PRN PRN Reason: Other Stop: 07/17/17 18:32 Nifedipine (Procardia) Confirm Administered Dose 30 mg .ROUTE .STK-MED ONE Stop: 07/16/17 06:33 Last Admin: 07/17/17 07:21 Dose: Not Given Octyl Cyanoacrylate (Dermabond Advance) Confirm Administered Dose 1 applic .ROUTE .STK-MED ONE Stop: 07/16/17 18:04 Ropivacaine (Naropin 0.2%) Confirm Administered Dose 20 ml .ROUTE .STK-MED ONE Stop: 07/15/17 17:14 - Exam General: Reports: Alert, Oriented, Cooperative, No Acute Distress Lungs: Reports: Normal Respiratory Effort GI/Abdominal Exam: Soft, Non-Tender, No Distention, No Mass, Pelvis Stable (Female) Exam: Vaginal Bleeding Rectal (Female) Exam: Deferred Back Exam: Reports: Full Range of Motion Extremities: Normal Range of Motion, Non-Tender, No Pedal Edema, Normal Capillary Refill Skin: Reports: Warm, Dry, Intact Wound/Incisions: Reports: Healing Well, Dressing Dry and Intact, No Drainage Neurological: Reports: No New Focal Deficit, Normal Gait, Normal Speech, Normal Tone Psy/Mental Status: Reports: Alert, Normal Affect, Normal Mood *Q Meaningful Use (DIS) - VTE *Q VTE Criteria *Q: - Stroke *Q Stroke Criteria *Q: - AMI *Q AMI Criteria *Q:
[2017-07-18] MEDS: NIFEdipine 10 MG Cap PO SCH (09:35)
[2017-07-18] MEDS: Docusate Sodium 100 MG Cap PO SCH (09:39)
== END 2017-07-18 12:15 | disposition home or self-care (01) | DRG 766 ==
LOC: MW.OBCHECK 00:19 → MW.OB 00:22 → UNDOADMOB 00:32 → MW.OB 00:32 → MW.OBCHECK 00:32 → INTOOBSV 17:45 → OBSVTOIN 17:45 → MW.OB 07-16 17:45 → OBSVTOIN 07-16 17:45 → MW.OB 07-17 03:29 → UNDODISIN 07-18 12:15
PROVIDERS: ADMIT Obstetrics & Gynecology; ATTEND Obstetrics & Gynecology
PROC: 10D00Z1 Extraction of Products of Conception, Low, Open Approach (ICD-10-PCS; principal; 2017-07-15)
PROC: 3E0P7VZ Introduction of Hormone into Female Reproductive, Via Natural or Artificial Opening (ICD-10-PCS; 2017-07-15)
PROC: 3E033VJ Introduction of Other Hormone into Peripheral Vein, Percutaneous Approach (ICD-10-PCS; 2017-07-15)
DX: O24.420 Gestational diabetes mellitus in childbirth, diet controlled (principal); O32.4XX0 Maternal care for high head at term, not applicable or unspecified; O33.9 Maternal care for disproportion, unspecified; O36.63X0 Maternal care for excessive fetal growth, third trimester, not applicable or unspecified; O09.513 Supervision of elderly primigravida, third trimester; Z3A.39 39 weeks gestation of pregnancy; Z37.0 Single live birth; Z88.8 Allergy status to other drugs, medicaments and biological substances
CPT/HCPCS: 01967; 01968; 36415; 59025; 80053; 81003; 82570; 84156; 84560; 85014; 85018; 85025; 85027; 86850; 86900; 86901; A9270-GY; J1200; J1885; J2210; J2274; J2300; J2590; J3010; J7120

== ENCOUNTER 2025-04-14 10:58 | Emergency (ER) | payer BC, OTHER ==
[2025-04-14 11:48] LABS: BASOPHILS ABSOLUTE AUTO 0.06 K/uL (0.00-0.20); BASOPHILS PERCENT AUTO 0.6 % (0.0-1.0); EOSINOPHILS ABSOLUTE AUTO 0.16 K/uL (0.00-0.45); EOSINOPHILS PERCENT AUTO 1.7 % (0.0-6.0); IMMATURE GRAN ABSOLUTE AUTO 0.04 K/uL (0.00-0.05); IMMATURE GRAN PERCENT AUTO 0.4 % (0.0-0.4); LYMPHOCYTES ABSOLUTE AUTO 1.51 K/uL (1.00-4.80); LYMPHOCYTES PERCENT AUTO 16.0 % (24.0-44.0); MEAN PLATELET VOLUME 10.8 fL (9.4-12.3); MONOCYTES ABSOLUTE AUTO 0.40 K/uL (0.00-0.80); MONOCYTES PERCENT AUTO 4.3 % (0.0-8.0); NEUTROPHILS ABSOLUTE AUTO 7.24 K/uL (1.80-7.70); NEUTROPHILS PERCENT AUTO 77.0 % (41.0-71.0); NRBC ABSOLUTE 0.00 K/uL (0.00-0.02); NRBC PERCENT 0.0 /100WBC (0.0-0.2); PLATELET COUNT,PLT 253 K/uL (150-400); RED BLOOD CELL COUNT 4.45 M/uL (4.10-5.30); WHITE BLOOD CELL COUNT,WBC 9.41 K/uL (3.9-11.3)
[2025-04-14 12:14] LABS: A/G RATIO 0.8 (0.9-1.6); ALANINE AMINOTRANSFERASE,ALT 804.0 IU/L (14-63); ASPARTATE AMNIOTRANSFERASE,AST 447.0 IU/L (15-37); BILIRUBIN TOTAL 1.6 mg/dL (0.2-1.0); BLOOD UREA NITROGEN,BUN 22.0 mg/dL (7.0-18.0); CARBON DIOXIDE,CO2 20.5 mmol/L (21.0-32.0); CHLORIDE,CL 102.0 mmol/L (98-107); CREATININE 0.8 mg/dL (0.6-1.0); EST CRCL DRUG DOSING (CG) 95.02 mL/min; GLUCOSE RANDOM 131.0 mg/dL (74-106); POTASSIUM,K 2.8 mmol/L (3.5-5.1); PROTEIN TOTAL,TP 9.1 g/dL (6.4-8.2); SODIUM,NA 137.0 mmol/L (136-145)
[2025-04-14 12:19] LABS: ESTIMATED GFR 92.0 mL/min (>60)
[2025-04-14] MEDS: Iopamidol 755 Mg/ML 100 ML Bottle IVPUSH ONE (12:40)
[2025-04-14] MEDS: Potassium Chloride 20 MEQ Tab.ER PO ONE (12:55)
[2025-04-14 13:07] LABS: APPEARANCE,URINE CLEAR; GLUCOSE,URINE 100 mg/dL (NEGATIVE); OCCULT BLOOD,URINE NEGATIVE (NEGATIVE)
[2025-04-14 13:39] LABS: EPITHELIAL CELLS,URINE RARE (NONE-FEW)
== END 2025-04-14 16:14 | disposition home or self-care (01) ==
LOC: MW.ED 10:58
DX: R10.13 Epigastric pain (principal); E87.6 Hypokalemia; R74.01 Elevation of levels of liver transaminase levels; I10 Essential (primary) hypertension; Z88.8 Allergy status to other drugs, medicaments and biological substances; Z79.4 Long term (current) use of insulin; Z79.899 Other long term (current) drug therapy
CPT/HCPCS: 36415; 74177; 76705; 80053; 81001; 83690; 83735; 84703; 85025; 87428; 87651; 96360; 99284; A9270; J7030; Q9967; 99283